=== PATIENT | female | born 1985 | race Caucasian/White ===

== ENCOUNTER 2017-05-17 13:56 | Emergency (ER) | payer MEDICAID ==
[~2017-05-17] VITALS: Ht 162.6 cm; Wt 65.0 kg
[2017-05-17 14:06] VITALS: BP 124/68; PULSE 20; PULSE 85; RESP 14; TEMP 98.2; O2SAT 99
--- NOTE | 2017-05-17 14:41 | PD ---
HPI Chief Complaint: Psychiatric Symptoms Time Seen by Provider: 14:15 Travel History International Travel<30 days: No Contact w/Intl Traveler<30days: No Traveled to known affect area: No History of Present Illness HPI This is a 31-year-old female who presents voluntarily for psychiatric evaluation. Initially she was seen at [facility] and sent here. The patient reports over the past 5 months she has been a resident of [facility] which is a rehabilitation facility. She does not want to talk about why she was a resident there. She reports that she has been bullied by other residents there and this is been making her feel depressed. She therefore presented for psychiatric evaluation. She reports that she does have a psychiatrist that she was unable to get an appointment with him. She denies any suicidal thoughts. She denies any drug or alcohol use. She denies any hallucinations. The patient does report that 3 weeks ago she twisted her right ankle while playing basketball. She was seen at [facility] where an x-ray revealed some type of fracture to the lateral right ankle. She followed up with an orthopedist associated with [facility], she does not remember his name, who will be following up with her and recommended nonoperative treatment and has allowed weightbearing. Because of this injury she was felt to be on the scalp of [facility]. She has no complaints in regards to her right ankle. She has minimal pain, denies any new injuries. [facility] Past Medical History Medical History: Denies Significant Hx Social History Alcohol Use: No Tobacco Use: No Substance Use: No Allergies-Medications (Allergen,Severity, Reaction): Coded Allergies: No Known Allergies (Unverified , 05/17/17) Review of Systems Except as stated in HPI: all other systems reviewed are Neg Physical Exam Narrative GENERAL: This is a well-developed well-nourished female in no acute distress SKIN: Warm and dry. HEAD: Atraumatic. Normocephalic. EYES: Pupils equal and round. No scleral icterus. No injection or drainage. ENT: No nasal bleeding or discharge. Mucous membranes pink and moist. NECK: Trachea midline. No JVD. CARDIOVASCULAR: Regular rate and rhythm. No murmur appreciated. RESPIRATORY: No accessory muscle use. Clear to auscultation. Breath sounds equal bilaterally. GASTROINTESTINAL: Abdomen soft, non-tender, nondistended. Hepatic and splenic margins not palpable. MUSCULOSKELETAL: No obvious deformities. There is a mild amount of ecchymosis around the lateral right ankle. There is no bony tenderness to palpation. There is no range of motion limitation. Distal pulses are intact. The Achilles tendon is intact. The patient had an Julian bandage and posterior fiberglass splint which she has been removing at home and using as needed. NEUROLOGICAL: Awake and alert. No obvious cranial nerve deficits. Motor grossly within normal limits. Normal speech. PSYCHIATRIC: Appropriate mood and affect; insight and judgment normal. Data Data Last Documented VS Vital Signs Date Time Temp Pulse Resp B/P Pulse Ox O2 Delivery O2 Flow Rate FiO2 05/17/17 14:06 98.2 85 14 124/68 99 Orders Ankle, Complete ([id number]) (05/17/17 ) Foot, Complete ([id number]) (05/17/17 ) Complete Blood Count With Diff (05/17/17 14:18) Comprehensive Metabolic Panel (05/17/17 14:18) Ed Urine Pregnancytest Poc (05/17/17 14:18) Psych Screen (05/17/17 14:18) Drug Screen, Random Urine (05/17/17 14:18) Alcohol (Ethanol) (05/17/17 14:18) Diet Regular Basic (05/17/17 Dinner) Labs Laboratory Tests Test 05/17/17 14:16 White Blood Count 11.1 TH/MM3 Red Blood Count 3.75 MIL/MM3 Hemoglobin 12.6 GM/DL Hematocrit 36.6 % Mean Corpuscular Volume 97.6 FL Mean Corpuscular Hemoglobin 33.6 PG Mean Corpuscular Hemoglobin 34.4 % Concent Red Cell Distribution Width 12.1 % Platelet Count 231 TH/MM3 Mean Platelet Volume 8.0 FL Neutrophils (%) (Auto) 69.5 % Lymphocytes (%) (Auto) 24.5 % Monocytes (%) (Auto) 5.1 % Eosinophils (%) (Auto) 0.5 % Basophils (%) (Auto) 0.4 % Neutrophils # (Auto) 7.7 TH/MM3 Lymphocytes # (Auto) 2.7 TH/MM3 Monocytes # (Auto) 0.6 TH/MM3 Eosinophils # (Auto) 0.1 TH/MM3 Basophils # (Auto) 0.0 TH/MM3 CBC Comment DIFF FINAL Differential Comment Sodium Level 140 MEQ/L Potassium Level 3.8 MEQ/L Chloride Level 105 MEQ/L Carbon Dioxide Level 27.0 MEQ/L Anion Gap 8 MEQ/L Blood Urea Nitrogen 18 MG/DL Creatinine 0.89 MG/DL Estimat Glomerular Filtration 74 ML/MIN Rate Random Glucose 97 MG/DL Calcium Level 9.3 MG/DL Total Bilirubin 0.3 MG/DL Aspartate Amino Transf 16 U/L (AST/SGOT) Alanine Aminotransferase 23 U/L (ALT/SGPT) Alkaline Phosphatase 53 U/L Total Protein 7.4 GM/DL Albumin 3.9 GM/DL Ethyl Alcohol Level LESS THAN 3 MG/DL [facility] Medical Decision Making Medical Screen Exam Complete: Yes Emergency Medical Condition: Yes Medical Record Reviewed: Yes Differential Diagnosis Adjustment reaction, acute psychosis, major depressive disorder, depressive disorder not otherwise specified, substance-induced mood disorder Narrative Course 31-year-old female presents voluntarily for psychiatric evaluation. She has no medical complaints. She sustained a injury to lateral right ankle 3 weeks ago while playing basketball, this is being managed by an outside orthopedist nonoperatively. X-ray performed today confirms tiny avulsion fracture of the distal right fibula. Lab work is unremarkable. The patient is medically cleared for psychiatric disposition. Diagnosis Primary Impression: Medical clearance for psychiatric admission Michael Miranda May 17, 2017 14:41
--- NOTE | 2017-05-17 14:56 | RADRPT ---
EXAM DATE/TIME: 05/17/2017 14:39 [facility] COMPARISON: No previous studies available for comparison. INDICATIONS : Right foot and ankle pain. Previous ligament injury on lateral dorsal portion of right foot. Re-injur y. MEDICAL HISTORY : None. SURGICAL HISTORY : None. ENCOUNTER: Initial ACUITY: 1 week PAIN SCORE: 10 LOCATION: Right lateral foot, ankle FINDINGS: Three view examination of the right foot demonstrates no soft tissue swelling, dislocation, or fractu re. The tarsal bones appear intact. The interphalangeal and metatarsophalangeal joints are intact. The calcaneus is intact. Bony mineralization is normal. CONCLUSION: No acute disease. Osmar Meadows MD on May 17, 2017 at 14:54 Board Certified Radiologist. This report was verified electronically.
--- NOTE | 2017-05-17 15:00 | RADRPT ---
EXAM DATE/TIME: 05/17/2017 14:41 [facility] COMPARISON: No previous studies available for comparison. INDICATIONS : Right foot and ankle pain. Previous ligament injury on lateral dorsal portion of right foot. Re-injur y. MEDICAL HISTORY : None. SURGICAL HISTORY : None. ENCOUNTER: Initial ACUITY: 1 week PAIN SCORE: 1/10 LOCATION: Right lateral foot, ankle FINDINGS: There is a tiny avulsion fracture involving the distal portion of the right fibula. CONCLUSION: 1. Tiny avulsion fracture involving the distal portion of the right fibula. Osmar Meadows MD on May 17, 2017 at 14:55 Board Certified Radiologist. This report was verified electronically.
[2017-05-17 15:05] LABS: AUTOMATED NEUTROPHIL # 7.7 TH/MM3 (1.8-7.7); BASOPHIL % 0.4 % (0.0-2.0); EOSINOPHIL # 0.1 TH/MM3 (0-0.4); EOSINOPHIL % 0.5 % (0.0-4.0); HEMATOCRIT 36.6 % (35.0-46.0); HEMO FLAGS DIFF FINAL; LYMPH % 24.5 % (9.0-44.0); LYMPHOCYTE # 2.7 TH/MM3 (1.0-4.8); MEAN CELL VOLUME 97.6 FL (80.0-100.0); MEAN CORPUSCULAR HEMOGLOBIN 33.6 PG (27.0-34.0); MEAN CORPUSCULAR HGB CONC 34.4 % (32.0-36.0); MONO % 5.1 % (0.0-8.0); NEUT % 69.5 % (16.0-70.0); PLATELET COUNT 231 TH/MM3 (150-450); RED BLOOD COUNT 3.75 MIL/MM3 (4.00-5.30); RED CELL DISTRIBUTION WIDTH 12.1 % (11.6-17.2); WHITE BLOOD COUNT 11.1 TH/MM3 (4.0-11.0)
[2017-05-17 15:30] LABS: ANION GAP 8 MEQ/L (5-15); AST (GOT) 16 U/L (15-37); BLOOD UREA NITROGEN 18 MG/DL (7-18); CHLORIDE 105 MEQ/L (98-107); GLOMERULAR FILTRATION RATE 74 ML/MIN (>89); POTASSIUM 3.8 MEQ/L (3.5-5.1); SODIUM (NA) 140 MEQ/L (136-145)
[2017-05-17 15:33] LABS: ALKALINE PHOSPHATASE 53 U/L (45-117); ALT (GPT) 23 U/L (10-53); TOTAL BILIRUBIN ADULT 0.3 MG/DL (0.2-1.0)
[2017-05-17 17:12] VITALS: BP 122/66; PULSE 72; RESP 16; TEMP 97.3; O2SAT 98
[2017-05-17 17:18] LABS: AMPHETAMINE, URINE NEG (NEG); BARBITURATES, URINE NEG (NEG); COCAINE, URINE NEG (NEG)
[2017-05-17] MEDS ORDERED: ATOM60 PO (17:58)
[2017-05-17] MEDS ORDERED: TRAZ100T6 PO (17:58)
[2017-05-17 22:08] VITALS: BP 108/55; PULSE 58; RESP 16; O2SAT 100
[2017-05-17] MEDS ORDERED: traZODone HCL 100 MG TAB PO ONE (23:00)
[2017-05-18 02:18] VITALS: BP 112/56; PULSE 74; RESP 17; O2SAT 97
[2017-05-18 06:23] VITALS: BP 99/65; PULSE 60; RESP 17; O2SAT 99
--- NOTE | 2017-05-18 11:52 | PD.PSY.CON ---
Provisional Diagnosis Admission Date [place] I. Adjustment disorder with depressed mood, cocaine use disorder, in early sustained remission [place] II. Deferred [place] III. No significant medical history History of Present Illness Service Psychiatry Consult Requested By Primary Care Physician Unknown HPI The patient is a 31-year-old woman, domiciled in a sober house, single , unemployed, with psychiatric history of cocaine use disorder, in early sustained remission, no psychiatric hospitalizations, no previous suicidal attempts, who presents voluntarily for psychiatric evaluation. Initially she was seen at [facility] and sent here. The patient reports over the past 5 months she has been a resident of [facility] which is a rehabilitation facility. She is now calm, cooperative and pleasant. She reports that she has been bullied by other residents there and this is been making her feel depressed , due to this ongoing situation yesterday she made a suicidal statement to the staff and she was about to be [place] act, but she finally accepted to come voluntarily for psychiatric evaluation. At this moment patient reports a better mood, she denies depressive symptoms, she says that yesterday she was just frustrated, she denies suicidal and homicidal ideation, she denies visual and auditory hallucinations. He is highly committed and motivated to continue her rehabilitation program. She denies the use of illicit drugs and alcohol. Review of Systems Constitutional: DENIES: Diaphoretic episodes, Fatigue, Fever, Weight gain, Weight loss, Chills, Dizziness, Change in appetite, Night Sweats Endocrine: DENIES: Abnorml menstrual pattern, Heat/cold intolerance, Polydipsia , Polyuria, Polyphagia Eyes: DENIES: Blurred vision, Diplopia, Eye inflammation, Eye pain, Vision loss , Photosensitivity, Double Vision Ears, nose, mouth, throat: DENIES: Tinnitus, Hearing loss, Vertigo, Nasal discharge, Oral lesions, Throat pain, Hoarseness, Ear Pain, Running Nose, Epistaxis, Sinus Pain, Toothache, Odynophagia Respiratory: DENIES: Apneas, Cough, Snoring, Wheezing, Hemoptysis, Sputum production, Shortness of breath Cardiovascular: DENIES: Chest pain, Palpitations, Syncope, Dyspnea on Exertion , PND, Lower Extremity Edema, Orthopnea, Claudication Genitourinary: DENIES: Abnormal vaginal bleeding, Dysmenorrhea, Dyspareunia, Sexual dysfunction, Urinary frequency, Urinary incontinence, Urgency, Hematuria , Dysuria, Nocturia, Vaginal discharge Musculoskeletal: DENIES: Joint pain, Muscle aches, Stiffness, Joint Swelling, Back pain, Neck pain Integumentary: DENIES: Abnormal pigmentation, Pruritus, Rash, Nail changes, Breast masses, Breast skin changes, Nipple discharge Hematologic/lymphatic: DENIES: Bruising, Lymphadenopathy Immunologic/allergic: DENIES: Eczema, Urticaria Neurologic: DENIES: Abnormal gait, Headache, Localized weakness, Paresthesias, Seizures, Speech Problems, Tremor, Poor Balance Psychiatric: DENIES: Anxiety, Confusion, Mood changes, Depression, Hallucinations, Agitation, Suicidal Ideation, Homicidal Ideation, Delusions Past Family Social History Coded Allergies: No Known Allergies (Unverified , 05/17/17) Reported Medications Trazodone 100 Mg [id number] Mg PO HS #30 TAB Ref 0 05/17/17 Atomoxetine (Strattera)60 Mg Cap60 Mg PO DAILY #30 CAP Ref 0 05/17/17 Family History Patient denies family psychiatric history Social History Patient lives in a sober house, she single, unemployed, highest level of education is 12th grade Patient's Strengths (min. 2) Good insight about her addiction problem. Physical Exam Vital Signs Vital Signs Date Time Temp Pulse Resp B/P Pulse Ox O2 Delivery O2 Flow Rate FiO2 05/18/17 06:23 60 17 99/65 99 Room Air 05/17/17 17:12 97.3 Lab Results Labs Laboratory Tests Test 05/17/17 14:16 White Blood Count 11.1 TH/MM3 Red Blood Count 3.75 MIL/MM3 Hemoglobin 12.6 GM/DL Hematocrit 36.6 % Mean Corpuscular Volume 97.6 FL Mean Corpuscular Hemoglobin 33.6 PG Mean Corpuscular Hemoglobin 34.4 % Concent Red Cell Distribution Width 12.1 % Platelet Count 231 TH/MM3 Mean Platelet Volume 8.0 FL Neutrophils (%) (Auto) 69.5 % Lymphocytes (%) (Auto) 24.5 % Monocytes (%) (Auto) 5.1 % Eosinophils (%) (Auto) 0.5 % Basophils (%) (Auto) 0.4 % Neutrophils # (Auto) 7.7 TH/MM3 Lymphocytes # (Auto) 2.7 TH/MM3 Monocytes # (Auto) 0.6 TH/MM3 Eosinophils # (Auto) 0.1 TH/MM3 Basophils # (Auto) 0.0 TH/MM3 CBC Comment DIFF FINAL Differential Comment Sodium Level 140 MEQ/L Potassium Level 3.8 MEQ/L Chloride Level 105 MEQ/L Carbon Dioxide Level 27.0 MEQ/L Anion Gap 8 MEQ/L Blood Urea Nitrogen 18 MG/DL Creatinine 0.89 MG/DL Estimat Glomerular Filtration 74 ML/MIN Rate Random Glucose 97 MG/DL Calcium Level 9.3 MG/DL Total Bilirubin 0.3 MG/DL Aspartate Amino Transf 16 U/L (AST/SGOT) Alanine Aminotransferase 23 U/L (ALT/SGPT) Alkaline Phosphatase 53 U/L Total Protein 7.4 GM/DL Albumin 3.9 GM/DL Ethyl Alcohol Level LESS THAN 3 MG/DL Mental Status Examination Appearance woman, age appearing, good hygiene, she is calm, cooperative Speech: Unremarkable Orientation: x3 Memory: Unremarkable Thought Process: Logical Thought Content: Unremarkable Hallucination Type: None Suicidal Ideation: No Previous Suicide Attempts: No Homicidal Ideation: No Previous Homicide Attempts: No Judgment: WNL Affect: Good Mood: Appropriate Motor Activity: Normal gait Assessment & Plan Problem List: (1) Adjustment disorder with depressed mood Assessment & Plan: On psychiatric evaluation today the patient is calm, cooperative and pleasant. Patient denies symptoms of depression, she denies anxiety, manic symptoms and psychosis. Patient denies suicidal and homicidal ideation, she denies visual and auditory hallucinations. Patient says that yesterday she was just frustrated and angry due to continues bullying and some kind of mistreatment by other clients in her sober house. She admits that she may a suicidal statement in the context of these emotions, which she also says that she is highly motivated to continue her program and she has too many plans for the future. Patient says that she has needed a lot of strength to keep sobriety for 5 months and she continues to be committed with her program. At this moment she does not meet criteria for admission. Extensive support, motivation and psychoeducation provided. She will be discharged. ICD Code: F43.21 Assessment & Plan Estimated LOS: Richar Sanabria MD May 18, 2017 11:52
== END 2017-05-18 10:12 | disposition home or self-care (01) ==
LOC: NEPJ 13:56
DX: Z00.8 Encounter for other general examination (principal); S82.831A Other fracture of upper and lower end of right fibula, initial encounter for closed fracture; X50.1XXA Overexertion from prolonged static or awkward postures, initial encounter; Y93.67 Activity, basketball
CPT/HCPCS: 73610; 73630; 80053; 80307; 84703; 85025; 99284